=== PATIENT | male | born 1950 | race Caucasian/White ===

== ENCOUNTER → 2016-06-21 | Outpatient (CLI) | payer BC ==
[~2016-06-21] MED LIST: LISI-725 PO; MULT-618 PO; PANT40TA PO; SIMV10TA2 PO
--- NOTE | 2016-06-21 18:13 | DIAGNOSTIC IMAGING REPORT ---
RIGHT LOWER EXTREMITY VENOUS DOPPLER CLINICAL HISTORY: Right leg pain. COMPARISON STUDY: No previous studies for comparison. TECHNIQUE: Sonography of the deep venous system of the right lower extremity was performed. Compression and augmentation were evaluated. FINDINGS: The right common femoral, superficial femoral and popliteal veins were compressible. Augmentation was normal. Flow was shown within the deep calf vessels. Linear echogenic material within the right femoral vein suggest old thrombus. IMPRESSION: 1. No evidence of acute deep venous thrombus within the right lower extremity. 2. Linear echogenic material within the right femoral vein which suggests minimal chronic thrombus. Electronically signed by: Bert Silva M.D. 06/21/2016 6:12 PM Dictated Date/Time: 06/21/2016 6:11 PM
== END | disposition home or self-care (01) ==
LOC: C.ULTR 17:25
PROVIDERS: ATTEND Family Medicine
DX: M79.604 Pain in right leg (principal)